=== PATIENT | male | born 1985 | race Caucasian/White ===

== ENCOUNTER 2020-06-23 20:55 | Emergency (ER) | payer MEDICAID, SELFPAY ==
[2020-06-23 21:12] VITALS: PULSE 77; RESP 18; TEMP 36.7; O2SAT 98; BMI 23.5
--- NOTE | 2020-06-23 21:31 | HMH.EDUTC ---
[facility] [place]ression: Scabies Disposition: Home, Self-Care Condition on Discharge: Good Instructions: Scabies, DI for Scabies, Permethrin Topical Additional Instructions: Permethrin 5% cream for all family members[1] Apply from neck down Leave on for 8-12hr before washing off Repeat in 14 days if no improvement You may continue to have itching for the next few days after using cream Follow up with Family doctor if no improvement or any worsening of symptoms Return if needed Straight to ER if any life threatening symptoms Prescriptions: Mupirocin [Bactroban 2% Ointment 22gm tube] 1 applicatio TP TID #1 tube Transmission Status: Received by [facility] Permethrin [Elimite 5% cream 60gm tube] 1 applicatio TP DIRECTED #1 tube Transmission Status: Received by [facility] Referrals: PCP,No [Primary Care Provider] - As needed Time of Disposition: 21:33 Medical Decision Making - Jesus Inquiry Pt receiving controlled substance: No Jesus was queried for this patient: No Vital Signs: 06/23/20 21:12 06/23/20 21:35 Temperature 98.1 F 98.1 F Temperature Source Oral Pulse Rate 77 Pulse Rate [Left] 77 Respiratory Rate 18 18 Blood Pressure 00/00 L 02 Sat by Pulse Oximetry 98 Oxygen Delivery Method Room Air [facility] [place] - General Stated complaint: Bug bites Time Seen by Provider: 06/23/20 21:15 Mode of Arrival: Ambulatory Source of Information: Patient Limitations: No Limitations Description of Symptoms (Recalled from Triage Doc. by RN): PATIENT C/O POSSIBLE SCABIES HEENT Symptoms (Recalled from RN notes): No Resp Symptoms (Recalled from RN notes): No Skin Symptoms (Recalled from RN notes): Yes MS Symptoms (Recalled from RN notes): No Functional Status (Recalled from RN notes): WNL - History of Present Illness Provider Complaint: Patient states that he thinks he has scabies States that he has been cleaning out an old abandoned house and noticed he was breaking out with rash and felt like he was being bitten by something and scratched off several of the bumps and got a small bug' out of it and when he looked it up on the computer it looked like scabies States that and daughter is having similar bites States that also he has been scratching the ones on his lower back and thinks they may be a infected - Related Data Home Medications Medication Instructions Recorded Confirmed Buprenorphine HCl/Naloxone HCl 1.5 tab PO DAILY 05/05/19 10/24/19 [Buprenorphin-Naloxon 8-2 mg Sl] Previous Rx's Medication Instructions Recorded Mupirocin [Bactroban 2% Ointment 1 applicatio TP TID #1 tube 06/23/20 22gm tube] Permethrin [Elimite 5% cream 60gm 1 applicatio TP DIRECTED #1 tube 06/23/20 tube] Allergies Allergy/AdvReac Type Severity Reaction Status Date / Time No Known Allergies Allergy Verified 05/05/19 17:28 - Worker's Comp Is this a Worker's Comp case?: No [facility] History - Hepatitis A Screen Drug use history?: No High risk sexual behaviors?: No History of sexually transmitted infection?: No Currently employed?: No Childcare worker?: No Do you have indoor plumbing?: Yes Do you have electricity?: Yes Attestation statement:: This patient has been screened for Hepatitis A risk factors. I have reviewed the patient's past medical history: Yes Medical History: Denies:: Diabetes Mellitus Type 1, Diabetes Mellitus Type 2 - Social History Smoking Status: Current every day smoker Tobacco Type: cigarettes # Packs/Day (cigarettes): 1 Alcohol Intake: never Alcohol Intake Frequency:: holidays/special occasions only Substance Use Type: denies use Occupational Status: other Housing: house Household Members: spouse ROS Obtained: Yes All systems reviewed & no additional complaints, Yes Systems reviewed as appropriate & no additional complaints - Constitutional Constitutional: Reports system reviewed and no additional complaints, except
[2020-06-23 21:35] VITALS: BP 00/00; PULSE 77; RESP 18; TEMP 36.7; O2SAT 98
== END 2020-06-23 21:39 | disposition home or self-care (01) ==
PROVIDERS: Emergency Provider Nurse Practitioner
DX: B86 Scabies (principal); F17.210 Nicotine dependence, cigarettes, uncomplicated
CPT/HCPCS: 99201

== ENCOUNTER 2021-05-12 15:40 | Emergency (ER) | payer MEDICAID, SELFPAY ==
[2021-05-12 15:40] VITALS: BP 162/91; PULSE 110; RESP 18; TEMP 36.8; O2SAT 99; BMI 28.3
--- NOTE | 2021-05-12 16:42 | HMH.EDUTC ---
[facility] [place] Disposition Clinical Impression: Generalized pruritus Bites and stings, insect Qualifiers: Encounter type: initial encounter Qualified Code(s): W57.XXXA - Bitten or stung by nonvenomous insect and other nonvenomous arthropods, initial encounter Disposition: Home, Self-Care Condition on Discharge: Good Instructions: DI for Itching Prescriptions: diphenhydrAMINE HCL [Diphenhydramine HCl] 25 mg PO Q6HP PRN #30 cap PRN Reason: Itching Transmission Status: Received by [facility] methylPREDNISolone [Medrol] 4 mg PO DIRECTED 6 Days #21 tab.ds.pk Transmission Status: Received by [facility] Triamcinolone Acetonide 1 applicatio TP TIDP PRN 7 Days #1 tube PRN Reason: Itching Transmission Status: Received by [facility] Referrals: ProviderJuaquin MD [Primary Care Provider] - Marilu Montaño MD [Referring] - Forms: Work/School Release Time of Disposition: 17:04 Medical Decision Making - Medical Records Medical records reviewed: No: I reviewed the patient's medical records. - Jesus Inquiry Pt receiving controlled substance: No Vital Signs: 05/12/21 15:40 05/12/21 16:49 Temperature 98.3 F 98.3 F Temperature Source Oral Pulse Rate 110 H Pulse Rate [Left Brachial] 110 H Respiratory Rate 18 18 Blood Pressure 162/91 H Blood Pressure [Left Arm] 162/91 H Blood Pressure Mean [Left Arm] 114 Blood Pressure Source [Left Arm] Automatic Cuff Blood Pressure Position [Left Arm] Sitting 02 Sat by Pulse Oximetry 99 Oxygen Delivery Method Room Air [facility] [place] HPI - General Stated complaint: bugs crawing all over him biting Time Seen by Provider: 05/12/21 15:50 Mode of Arrival: Ambulatory Source of Information: Patient Limitations: No Limitations Description of Symptoms (Recalled from Triage Doc. by RN): PATIENT C/O BUG BITES ALL OVER. HE STATES HE WAS SEEN FOR IT APPROX 6 MONTHS AGO AND WAS GIVEN CREAM, BUT STATES THE CREAM MULTIPLIED THE BUGS AND THEY ARE STILL CRAWLING ON HIM AND BITING HIM, GOING UNDER HIS SKIN HEENT Symptoms (Recalled from RN notes): No Resp Symptoms (Recalled from RN notes): No Skin Symptoms (Recalled from RN notes): Yes MS Symptoms (Recalled from RN notes): No Functional Status (Recalled from RN notes): WNL - History of Present Illness Provider Complaint: He states that he feels like he has bugs crawling all over him. He has been itching all over for the past 2 days. He denies seeing any bugs, but he thinks they have burrowed into his skin. He denies any fever/chills. - Related Data Previous Rx's Medication Instructions Recorded Triamcinolone Acetonide 1 applicatio TP TIDP PRN 7 Days #1 05/12/21 tube diphenhydrAMINE HCL 25 mg PO Q6HP PRN #30 cap 05/12/21 [Diphenhydramine HCl] methylPREDNISolone [Medrol] 4 mg PO DIRECTED 6 Days #21 05/12/21 tab.[email or web address] Allergies Allergy/AdvReac Type Severity Reaction Status Date / Time No Known Allergies Allergy Verified 05/05/19 17:28 - Worker's Comp Is this a Worker's Comp case?: No [facility] History - Hepatitis A Screen Drug use history?: No High risk sexual behaviors?: No History of sexually transmitted infection?: No Currently employed?: No Childcare worker?: No Do you have indoor plumbing?: Yes Do you have electricity?: Yes Attestation statement:: This patient has been screened for Hepatitis A risk factors. I have reviewed the patient's past medical history: Yes Medical History: Denies:: Diabetes Mellitus Type 1, Diabetes Mellitus Type 2 - Social History Smoking Status: Current every day smoker Tobacco Type: cigarettes # Packs/Day (cigarettes): 1 Alcohol Intake: never Alcohol Intake Frequency:: holidays/special occasions only Substance Use Type: denies use Occupational Status: other Housing: house Household Members: spouse ROS Obtained: Yes All systems reviewed & no additional complaints Physical Exam - General General appearance: alert, in no apparent distress - Head
[2021-05-12 16:49] VITALS: BP 162/91; PULSE 110; RESP 18; TEMP 36.8; O2SAT 99
== END 2021-05-12 17:05 | disposition home or self-care (01) ==
LOC: UTC 15:44
PROVIDERS: Emergency Provider Nurse Practitioner Family
DX: L29.9 Pruritus, unspecified (principal); W57.XXXA Bitten or stung by nonvenomous insect and other nonvenomous arthropods, initial encounter; F17.210 Nicotine dependence, cigarettes, uncomplicated

== ENCOUNTER → 2022-01-31 11:56 | Outpatient (CLI) | payer MEDICAID, SELFPAY ==
[2022-01-31 13:16] LABS: Basophils # 0.1 K/mm3 (0-0.2); Basophils % 0.5 % (0.1-2.0); Eosinophils # 0.4 K/mm3 (0.0-0.4); Eosinophils % 3.8 % (0.1-12.0); Hematocrit 41.8 % (42.0-52.0); Hemoglobin 13.7 g/dL (14.1-18.0); Lymphocytes % 21.8 % (10-50); Mean Corpuscular HGB Conc 32.7 g/dL (31.8-35.4); Mean Corpuscular Hemoglobin 30.4 pg (27.0-31.2); Mean Corpuscular Volume 92.8 fl (80-94); Monocytes # 0.6 K/mm3 (0.1-1.0); Monocytes % 6.6 % (1.7-9.3); Neutrophils # 6.1 K/mm3 (1.8-7.8); Neutrophils % 67.3 % (37.0-80.0); Platelet Count 369 K/mm3 (142-424); Red Cell Distribution Width 13.4 % (11.5-17.5); White Blood Count 9.1 K/mm3 (4.8-10.8)
[2022-01-31 16:27] LABS: Alanine Aminotransferase 53 U/L (12-78); Albumin Level 3.9 g/dl (3.5-5.0); Albumin/Globulin Ratio 1.3 (1.1-1.8); Alkaline Phosphatase 101 U/L (38-126); Amylase 91 U/L (30-110); Anion Gap 11.8 mEq/L (5-15); Aspartate Amino Transferase 35 U/L (17-59); Bilirubin,Total 0.4 mg/dl (0.2-1.3); Blood Urea Nitrogen 17 mg/dl (9-20); Calcium 8.4 mg/dl (8.4-10.2); Carbon Dioxide 27 mmol/L (22.0-30.0); Chloride 102 mmol/L (98-107); Estimated Glomerular Filt Rate 84 ml/min (>60); GFR (African American) 102 ML/MIN (>60); Globulin 2.9 g/dL (1.3-3.2); Glucose 107 mg/dl (74-100); Potassium 3.8 mmoL/L (3.5-5.1); Sodium 137 mmol/L (136-145); Total Protein,Serum 6.8 g/dl (6.3-8.2)
== END ==
PROVIDERS: PCP Internal Medicine; Visit Provider Internal Medicine
DX: R10.11 Right upper quadrant pain (principal); Z86.19 Personal history of other infectious and parasitic diseases
CPT/HCPCS: 36415; 80053; 82150; 85025

== ENCOUNTER 2022-11-21 22:53 | Observation (INO) | payer MEDICAID, SELFPAY ==
[2022-11-21 22:53] VITALS: BP 130/89; PULSE 130; RESP 19; TEMP 38.3; O2SAT 99; BMI 26.6
[2022-11-21 23:04] VITALS: BP 140/83; PULSE 124; RESP 19; O2SAT 99
--- NOTE | 2022-11-21 23:43 | ECG_ITS ---
APPROVED REPORT Exam: Resting ECG HR:111 bpm ECG Measurements Heart Rate 111 AXES SD 117 P 40 QRSd 86 QRS 84 QT 302 T 70 QTc 368 Conclusion SINUS TACHYCARDIA WITH SHORT SD INTERVAL ABNORMAL RHYTHM ECG UNCONFIRMED REPORT Electronically signed by : Ortiz Condon MD 11/22/2022 19:12:19
[2022-11-21 23:48] LABS: Basophils # 0.1 K/mm3 (0-0.2); Basophils % 0.5 % (0.1-2.0); Eosinophils # 0.2 K/mm3 (0.0-0.4); Eosinophils % 1.1 % (0.1-12.0); Hematocrit 45.8 % (42.0-52.0); Hemoglobin 15.7 g/dL (14.1-18.0); Lymphocytes # 1.8 K/mm3 (0.7-4.5); Lymphocytes % 11.6 % (10-50); Mean Corpuscular HGB Conc 34.3 g/dL (31.8-35.4); Mean Corpuscular Hemoglobin 30.1 pg (27.0-31.2); Mean Corpuscular Volume 87.7 fl (80-94); Mean Platelet Volume 8.1 fl (7.4-10.4); Monocytes # 0.7 K/mm3 (0.1-1.0); Monocytes % 4.3 % (1.7-9.3); Neutrophils # 12.8 K/mm3 (1.8-7.8); Neutrophils % 82.4 % (37.0-80.0); Platelet Count 368 K/mm3 (142-424); Red Blood Count 5.22 M/mm3 (4.60-6.20); Red Cell Distribution Width 12.7 % (11.5-17.5); White Blood Count 15.5 K/mm3 (4.8-10.8)
[2022-11-21 23:50] LABS: MANUAL DIFFERENTIAL MANUAL DIFFERENTIAL (MANUAL DIFF)
[2022-11-21 23:58] LABS: Lymphocytes % 13 % (10-50); Monocytes % 3 % (2-9); Neutrophils % 84 % (42-76); Stomatocytes 1+; Total Cells Counted 100
[2022-11-21 23:59] LABS: Platelet Estimate Normal; Tear Drop Cells 1+
[2022-11-22] VITALS (14 sets, daily range): BP systolic 108–148; BP diastolic 65–102; PULSE 64–104; RESP 14–20; TEMP 36.4–36.8; O2SAT 93–100; BMI 25.9
[2022-11-22 00:11] LABS: Erythrocyte Sedimentation Rate 23 mm/hr (0-15)
--- NOTE | 2022-11-22 00:31 | CT_ITS ---
PROCEDURE INFORMATION: Exam: CT Right Upper Extremity With Contrast, Forearm Exam date and time: 11/22/2022 1:02 AM Age: 36 years old Clinical indication: Mass or lump; Arm, lower; Patient HX: PT states abscess right forearm x1 week; Additional info: Large abscess, swelling at elbow, R/O deep infect TECHNIQUE: Imaging protocol: Computed tomography of the Right upper extremity with contrast. Exam focused on the forearm. Radiation optimization: All CT scans at this facility use at least one of these dose optimization techniques: automated exposure control; mA and/or kV adjustment per patient size (includes targeted exams where dose is matched to clinical indication); or iterative reconstruction. Contrast material: ISOVUE; Contrast volume: 75 ml; Contrast route: IV; COMPARISON: No relevant prior studies available. FINDINGS: Bones/joints: No acute fracture. No dislocation. No definite cortical destruction. Soft tissues: Mild skin thickening. Moderate stranding/fluid within subcutaneous tissues. 3.2 x 2.7 x 1.5 cm peripherally enhancing fluid collection along dorsal aspect of forearm. No soft tissue gas. IMPRESSION: Findings compatible with cellulitis and abscess.
[2022-11-22 01:16] LABS: Chloride 103 mmol/L (98-107); Potassium 4.1 mmoL/L (3.5-5.1); Sodium 138 mmol/L (136-145)
[2022-11-22 01:18] LABS: Alanine Aminotransferase 96 U/L (12-78); Aspartate Amino Transferase 56 U/L (17-59); Blood Urea Nitrogen 10 mg/dl (9-20); Creatinine Clearance Estimated 123 mL/min (50-200); Estimated Glomerular Filt Rate 95 ml/min (>60); GFR (African American) 115 ML/MIN (>60)
[2022-11-22 01:19] LABS: Albumin Level 3.8 g/dl (3.5-5.0); Albumin/Globulin Ratio 1.1 (1.1-1.8); Alkaline Phosphatase 130 U/L (38-126); Anion Gap 8.1 mEq/L (5-15); Bilirubin,Total 0.3 mg/dl (0.2-1.3); Calcium 8.6 mg/dl (8.4-10.2); Carbon Dioxide 31 mmol/L (22.0-30.0); Globulin 3.6 g/dL (1.3-3.2); Glucose 112 mg/dl (74-100); Total Protein,Serum 7.4 g/dl (6.3-8.2)
[2022-11-22 01:25] LABS: C-Reactive Protein 40.5 mg/L (0-4)
[2022-11-22 01:52] LABS: Procalcitonin 0.092 ng/mL (0.0-2.0)
[2022-11-22 02:00] LABS: Coronavirus 19, PCR Not Detected (NotDetected); Influenza A, PCR Not Detected (NotDetected); Influenza B, PCR Not Detected (NotDetected)
--- NOTE | 2022-11-22 02:52 | HMH.EDGENADL ---
Discharge Plan Disposition Chief Complaint: Skin/Abscess/Foreign Body Discharge ED Provider: Natacha Castro General Adult HPI General Chief complaint: Skin/Abscess/Foreign Body Stated complaint: Arm pain Time Seen by Provider: 11/21/22 23:14 Mode of Arrival: Ambulatory Source of Information: Patient Limitations: No Limitations Description of Symptoms (Recalled from ER Triage Doc. by RN): Patient reports RFA abscess x1.5 weeks. Reports history of an abscess previously with sepsis. Patient reports fever, chills, headache, nausea. History of Present Illness HPI narrative: 36-year-old male with PMH of IVDA and seizures who presents with one week of progressively worsening left forearm swelling and new development of fevers and chills earlier today. No chest pain, shortness of breath, nausea, vomiting, abdominal pain. Does not recall his last drug use. He does note that he has a history of sepsis in the past secondary to similar infection. Also notes that he has had several abscesses in the past that have self drained. Related Data Home Medications Medication Instructions Recorded Confirmed No Known Home Medications 11/21/22 11/21/22 Allergies Allergy/AdvReac Type Severity Reaction Status Date / Time No Known Allergies Allergy Verified 05/05/19 17:28 [facility] Disclaimer: The information contained in this section may have been updated after the patient was seen, as this information can be updated by other users. Social History Smoking Status: Current every day smoker tobacco type: cigarettes packs per day: 1 alcohol intake: never substance use type: denies use current occupational status: other Travel in the last 8 weeks: None household members: spouse housing: house caffeine: No ROS Obtained: Yes All systems reviewed & no additional complaints except as documented Physical Exam General General appearance: alert Head Head exam: atraumatic and normocephalic Eye Eye exam: Present normal appearance ENT ENT exam: Present normal exam Neck Neck exam: Present normal inspection and full ROM Chest Chest inspection: Present normal inspection and symmetric chest wall rise Respiratory Respiratory exam: Present normal lung sounds bilaterally; Absent respiratory distress Cardiovascular Cardiovascular exam: Present tachycardia and normal heart sounds Abdominal Exam Abdominal exam: Present soft; Absent tenderness Expanded Upper Extremity Exam Right: Comment: Large abscess with central ulceration to lateral forearm distal to the elbow, at least 4 x 3 cm abscess with several surrounding cm of induration, able to flex and extend at the elbow, sensation intact Neurological Exam Neurological exam: Present alert and oriented X3 Skin Skin exam: Present warm and dry Medical Decision Making Jesus Inquiry Pt receiving controlled substance: No Vital Signs: 11/21/22 22:53 11/21/22 23:04 Temperature 100.9 F H Temperature Source Oral Pulse Rate 124 H Pulse Rate [Right] 130 H Respiratory Rate 19 19 Blood Pressure 140/83 Blood Pressure [Left Arm] 130/89 Blood Pressure Mean [Left Arm] 102 02 Sat by Pulse Oximetry 99 99 Oxygen Delivery Method Room Air Room Air Lab Data Lab Results 11/21/22 23:20: WBC 15.5 H, RBC 5.22, Hgb 15.7, Hct 45.8, MCV 87.7, MCH 30.1, MCHC 34.3, RDW 12.7, Plt Count 368, MPV 8.1, Neut % (Auto) 82.4 H, Lymph % (Auto) 11.6, [place] % (Auto) 4.3, Eos % (Auto) 1.1, Baso % (Auto) 0.5, Neut # (Auto) 12.8 H, Lymph # (Auto) 1.8, [place] # (Auto) 0.7, Eos # (Auto) 0.2, Baso # (Auto) 0.1, Total Counted 100, Neutrophils % (Manual) 84 H, Lymphocytes % (Manual) 13, Monocytes % (Manual) 3, Platelet Estimate Normal, Tear Drop Cells 1+, Stomatocytes 1+ 11/21/22 23:20: Lactate 2.0 11/21/22 23:20: ESR 23 H 11/22/22 00:56: Sodium 138, Potassium 4.1, Chloride 103, Carbon Dioxide 31 H, Anion Gap 8.1, BUN 10, Creatinine 0.90, Estimated Creat Clear 123, Estimated GFR 95, Est GFR (
--- NOTE | 2022-11-22 03:00 | EXP.HP ---
History of Present Illness *Admission Date: 11/22/22 *Reason for visit:: abscess right arm *History of present illness: for one and half weeks had three places that were infected two broke opened and healed the right arm keep getting worse. he had similar over one and half years ago. he [facility] in [facility] [facility] Disclaimer: The information contained in this section may have been updated after the patient was seen, as this information can be updated by other users. Social History Smoking Status: Current every day smoker tobacco type: cigarettes packs per day: 1 alcohol intake: never substance use type: denies use current occupational status: other Travel in the last 8 weeks: None household members: spouse housing: house caffeine: No Review of Systems Review of Systems Review of systems:: pertinent systems reviewed and negative unless documented below Review of systems (narrative): noted history of seizures , was on keppra, due to insurance stopped the medication over 3 months ago , Constitutional Constitutional: Reports system reviewed and no additional complaints, except as documented and Reports body ache(s) Eyes Eyes: Reports system reviewed and no additional complaints, except as documented ENT Ears, Nose, Mouth, and Throat: Reports system reviewed and no additional complaints, except as documented *Cardiovascular Cardiovascular: Reports system reviewed and no additional complaints, except as documented *Respiratory Respiratory: Reports system reviewed and no additional complaints, except as documented *Gastrointestinal Gastrointestinal: Reports system reviewed and no additional complaints, except as documented *Genitourinary Genitourinary: Reports system reviewed and no additional complaints, except as documented *Musculoskeletal Musculoskeletal: Reports system reviewed and no additional complaints, except as documented Integumentary/Breasts Skin/Breast: Reports system reviewed and no additional complaints, except as documented, Reports furuncle (reason for visit ) and Reports non-healing lesions *Neurologic Neurologic: Reports system reviewed and no additional complaints, except as documented Psychiatric Psychiatric: Reports system reviewed and no additional complaints, except as documented Endocrine Endocrine: Reports system reviewed and no additional complaints, except as documented Hematologic/Lymphatic Hematologic/Lymphatic: Reports system reviewed and no additional complaints, except as documented Allergic/Immunologic Allergic/Immunologic: Reports system reviewed and no additional complaints, except as documented Meds Home Medications and Allergies Home Medications Medication Instructions Recorded Confirmed Type No Known Home Medications 11/21/22 11/21/22 History New Prescriptions to Start Prescriptions: Allergies Allergy/AdvReac Type Severity Reaction Status Date / Time No Known Allergies Allergy Verified 05/05/19 17:28 Exam Data for Last 24 hours Vital signs and Labs for Last 24 Hours: Temp Pulse Resp BP Pulse Ox 100.9 F H 124 H 19 140/83 99 11/21/22 22:53 11/21/22 23:04 11/21/22 23:04 11/21/22 23:04 11/21/22 23:04 Laboratory Results - last 24 hr 11/21/22 23:20: WBC 15.5 H, RBC 5.22, Hgb 15.7, Hct 45.8, MCV 87.7, MCH 30.1, MCHC 34.3, RDW 12.7, Plt Count 368, MPV 8.1, Neut % (Auto) 82.4 H, Lymph % (Auto) 11.6, [place] % (Auto) 4.3, Eos % (Auto) 1.1, Baso % (Auto) 0.5, Neut # (Auto) 12.8 H, Lymph # (Auto) 1.8, [place] # (Auto) 0.7, Eos # (Auto) 0.2, Baso # (Auto) 0.1, Total Counted 100, Neutrophils % (Manual) 84 H, Lymphocytes % (Manual) 13, Monocytes % (Manual) 3, Platelet Estimate Normal, Tear Drop Cells 1+, Stomatocytes 1+ 11/21/22 23:20: Lactate 2.0 11/21/22 23:20: ESR 23 H 11/22/22 00:56: Sodium 138, Potassium 4.1, Chloride 103, Carbon Dioxide 31 H, Anion Gap 8.1, BUN 10, Creatinine 0.90, Estimated Creat Clear 123, Estimated GFR 95, Est GFR (Afr
--- NOTE | 2022-11-22 03:48 | PC.NURSE ---
PT ARRIVED TO FLOOR AT THIS TIME
--- NOTE | 2022-11-22 04:55 | EXP.PN ---
Subjective *Date: 11/22/22 *Time: 04:55 Interval history: itching and cough Exam Data for Last 24 hours Vital signs and Labs for Last 24 Hours: Temp Pulse Resp BP Pulse Ox 98.1 F 102 H 16 134/68 100 11/22/22 04:22 11/22/22 04:29 11/22/22 04:22 11/22/22 04:22 11/22/22 04:29 Laboratory Results - last 24 hr 11/21/22 23:20: WBC 15.5 H, RBC 5.22, Hgb 15.7, Hct 45.8, MCV 87.7, MCH 30.1, MCHC 34.3, RDW 12.7, Plt Count 368, MPV 8.1, Neut % (Auto) 82.4 H, Lymph % (Auto) 11.6, [place] % (Auto) 4.3, Eos % (Auto) 1.1, Baso % (Auto) 0.5, Neut # (Auto) 12.8 H, Lymph # (Auto) 1.8, [place] # (Auto) 0.7, Eos # (Auto) 0.2, Baso # (Auto) 0.1, Total Counted 100, Neutrophils % (Manual) 84 H, Lymphocytes % (Manual) 13, Monocytes % (Manual) 3, Platelet Estimate Normal, Tear Drop Cells 1+, Stomatocytes 1+ 11/21/22 23:20: Lactate 2.0 11/21/22 23:20: ESR 23 H 11/22/22 00:56: Sodium 138, Potassium 4.1, Chloride 103, Carbon Dioxide 31 H, Anion Gap 8.1, BUN 10, Creatinine 0.90, Estimated Creat Clear 123, Estimated GFR 95, Est GFR ( Amer) 115, Glucose 112 H, Calcium 8.6, Total Bilirubin 0.3, AST 56, ALT 96 H, Alkaline Phosphatase 130 H, C-Reactive Protein 40.5 H, Total Protein 7.4, Albumin 3.8, Globulin 3.6 H, Albumin/Globulin Ratio 1.1, Procalcitonin 0.092 11/22/22 01:54: SARS-CoV-2 (PCR) Not detected, Influenza A Untype (PCR) Not detected, Influenza Type B (PCR) Not detected I & O for Last 24 hours: Intake & Output 11/19/22 11/20/22 11/21/22 11/22/22 23:59 23:59 23:59 23:59 Weight 77.111 kg 74.843 kg Microbiology Reports for the Last 24 Hours: Microbiology 11/21/22 23:07 Arm,Right - Abscess Gram Stain - Final *Routine HEENT Exam ENT: Present mucous membranes moist Comments: posterior phyarnx normal exam *Routine Respiratory Exam Respiratory: Present CTA bilaterally and normal respiratory effort Comments: lung clear in all [place] Assessment and Plan *Assessment and plan (1) Cough: Status: Acute Category: Medical Code(s): R05.9 - Cough, unspecified (2) Itching: Status: Acute Category: Medical Code(s): L29.9 - Pruritus, unspecified Plan patient has started to cough, was not in ER , also feels itchy. will add Benadryl and cough syrup .
--- NOTE | 2022-11-22 07:43 | EXP.PN ---
Subjective *Date: 11/22/22 *Time: 12:37 Interval history: Date of service 11/22/2022 I am accompanied by several members of the multidisciplinary rounds team. The nursing staff report T-max 100.9 with elevated heart rates and stable blood pressures. He saturating appropriately on room air. His morning labs identified leukocytoses with mildly elevated ESR and CRP. His procalcitonin is negative and imaging of his forearm identifies soft tissue changes. His ED lactic acid was normal. He is tolerating his IV antibiotic therapy with no adverse events. Orthopedics consult noted. The patient reports adequate pain control and voices no acute events since admission. Exam Data for Last 24 hours Vital signs and Labs for Last 24 Hours: Temp Pulse Resp BP Pulse Ox 98.1 F 102 H 16 134/68 100 11/22/22 04:22 11/22/22 04:29 11/22/22 04:22 11/22/22 04:22 11/22/22 04:29 Laboratory Results - last 24 hr 11/21/22 23:20: WBC 15.5 H, RBC 5.22, Hgb 15.7, Hct 45.8, MCV 87.7, MCH 30.1, MCHC 34.3, RDW 12.7, Plt Count 368, MPV 8.1, Neut % (Auto) 82.4 H, Lymph % (Auto) 11.6, [place] % (Auto) 4.3, Eos % (Auto) 1.1, Baso % (Auto) 0.5, Neut # (Auto) 12.8 H, Lymph # (Auto) 1.8, [place] # (Auto) 0.7, Eos # (Auto) 0.2, Baso # (Auto) 0.1, Total Counted 100, Neutrophils % (Manual) 84 H, Lymphocytes % (Manual) 13, Monocytes % (Manual) 3, Platelet Estimate Normal, Tear Drop Cells 1+, Stomatocytes 1+ 11/21/22 23:20: Lactate 2.0 11/21/22 23:20: ESR 23 H 11/22/22 00:56: Sodium 138, Potassium 4.1, Chloride 103, Carbon Dioxide 31 H, Anion Gap 8.1, BUN 10, Creatinine 0.90, Estimated Creat Clear 123, Estimated GFR 95, Est GFR ( Amer) 115, Glucose 112 H, Calcium 8.6, Total Bilirubin 0.3, AST 56, ALT 96 H, Alkaline Phosphatase 130 H, C-Reactive Protein 40.5 H, Total Protein 7.4, Albumin 3.8, Globulin 3.6 H, Albumin/Globulin Ratio 1.1, Procalcitonin 0.092 11/22/22 01:54: SARS-CoV-2 (PCR) Not detected, Influenza A Untype (PCR) Not detected, Influenza Type B (PCR) Not detected I & O for Last 24 hours: Intake & Output 11/19/22 11/20/22 11/21/22 11/22/22 23:59 23:59 23:59 23:59 Weight 77.111 kg 74.843 kg Microbiology Reports for the Last 24 Hours: Microbiology 11/22/22 01:39 Arm,Right Gram Stain - Final 11/21/22 23:07 Arm,Right - Abscess Gram Stain - Final Constitutional Constitutional: no acute distress *Routine HEENT Exam Head: Present normocephalic Eye: Present EOMI and PERRL ENT: Present mucous membranes moist *Routine Neck Exam Neck: Present supple; Absent lymphadenopathy *Routine Respiratory Exam Respiratory: Present CTA bilaterally *Routine Cardiovascular Exam Cardiovascular: Present RRR *Routine Abdominal Exam Abdominal: Present soft and normoactive bowel sounds; Absent tenderness *Routine Extremities Exam Comments: Right forearm with edema, erythema and surgical dressing. He demonstrates full range of motion at the elbow and shoulder with intact pulses and sensitivity. He demonstrates a normal capillary refill. His forearm is tender to palpation. *Routine Skin Exam Skin: Present warm; Absent rash *Routine Neurological Exam Neurological: Present alert and oriented X3 Assessment and Plan *Assessment and plan (1) Cellulitis of right upper extremity: Status: Acute Category: Medical Code(s): L03.113 - Cellulitis of right upper limb (2) Abscess of right forearm: Status: Acute Category: Medical Code(s): L02.413 - Cutaneous abscess of right upper limb (3) Intravenous drug abuse: Status: Acute Category: Social Hx Code(s): F19.10 - Other psychoactive substance abuse, uncomplicated Plan This is a 36-year-old male with right forearm cellulitis and abscess identified on CT imaging with elevated inflammatory markers and history of intravenous drug use. He denies a past history of endocarditis and reports no IV drug use in over a year. He has undergone I&D in the ED and o
[2022-11-22 07:47] LABS: Basophils # 0.1 K/mm3 (0-0.2); Basophils % 0.4 % (0.1-2.0); Eosinophils # 0.3 K/mm3 (0.0-0.4); Eosinophils % 2.7 % (0.1-12.0); Hematocrit 37.8 % (42.0-52.0); Lymphocytes # 2.1 K/mm3 (0.7-4.5); Lymphocytes % 16.3 % (10-50); Mean Corpuscular HGB Conc 33.3 g/dL (31.8-35.4); Mean Corpuscular Hemoglobin 28.9 pg (27.0-31.2); Mean Corpuscular Volume 86.7 fl (80-94); Mean Platelet Volume 7.9 fl (7.4-10.4); Monocytes # 0.8 K/mm3 (0.1-1.0); Monocytes % 5.9 % (1.7-9.3); Neutrophils # 9.4 K/mm3 (1.8-7.8); Neutrophils % 74.7 % (37.0-80.0); Platelet Count 316 K/mm3 (142-424); Red Blood Count 4.36 M/mm3 (4.60-6.20); Red Cell Distribution Width 12.7 % (11.5-17.5); White Blood Count 12.6 K/mm3 (4.8-10.8)
[2022-11-22 07:53] LABS: Alanine Aminotransferase 70 U/L (12-78); Albumin Level 3.2 g/dl (3.5-5.0); Albumin/Globulin Ratio 1.1 (1.1-1.8); Alkaline Phosphatase 103 U/L (38-126); Anion Gap 7.8 mEq/L (5-15); Aspartate Amino Transferase 39 U/L (17-59); Bilirubin,Total 0.2 mg/dl (0.2-1.3); Blood Urea Nitrogen 7 mg/dl (9-20); Carbon Dioxide 27 mmol/L (22.0-30.0); Chloride 110 mmol/L (98-107); Creatinine Clearance Estimated 134 mL/min (50-200); Estimated Glomerular Filt Rate 109 ml/min (>60); GFR (African American) 132 ML/MIN (>60); Glucose 108 mg/dl (74-100); Potassium 3.8 mmoL/L (3.5-5.1); Sodium 141 mmol/L (136-145); Total Protein,Serum 6.2 g/dl (6.3-8.2)
[2022-11-22 07:54] LABS: Hemoglobin 12.7 g/dL (14.1-18.0)
--- NOTE | 2022-11-22 08:22 | EXP.PHA.CONS ---
Pharmacy Consult Date: 11/22/22 Time: 08:23 Referring provider: DR. PARK Reason for Consult:: VANCOMYCIN DOSING Allergies Allergy/AdvReac Type Severity Reaction Status Date / Time No Known Allergies Allergy Verified 05/05/19 17:28 Home Medications Medication Instructions Recorded Confirmed Type No Known Home Medications 11/21/22 11/21/22 History New Prescriptions to Start Prescriptions: Height: 1.7 m Weight: 74.843 kg Laboratory Results:: Laboratory Results - last 24 hr 11/21/22 23:20: WBC 15.5 H, RBC 5.22, Hgb 15.7, Hct 45.8, MCV 87.7, MCH 30.1, MCHC 34.3, RDW 12.7, Plt Count 368, MPV 8.1, Neut % (Auto) 82.4 H, Lymph % (Auto) 11.6, [place] % (Auto) 4.3, Eos % (Auto) 1.1, Baso % (Auto) 0.5, Neut # (Auto) 12.8 H, Lymph # (Auto) 1.8, [place] # (Auto) 0.7, Eos # (Auto) 0.2, Baso # (Auto) 0.1, Total Counted 100, Neutrophils % (Manual) 84 H, Lymphocytes % (Manual) 13, Monocytes % (Manual) 3, Platelet Estimate Normal, Tear Drop Cells 1+, Stomatocytes 1+ 11/21/22 23:20: Lactate 2.0 11/21/22 23:20: ESR 23 H 11/22/22 00:56: Sodium 138, Potassium 4.1, Chloride 103, Carbon Dioxide 31 H, Anion Gap 8.1, BUN 10, Creatinine 0.90, Estimated Creat Clear 123, Estimated GFR 95, Est GFR ( Amer) 115, Glucose 112 H, Calcium 8.6, Total Bilirubin 0.3, AST 56, ALT 96 H, Alkaline Phosphatase 130 H, C-Reactive Protein 40.5 H, Total Protein 7.4, Albumin 3.8, Globulin 3.6 H, Albumin/Globulin Ratio 1.1, Procalcitonin 0.092 11/22/22 01:54: SARS-CoV-2 (PCR) Not detected, Influenza A Untype (PCR) Not detected, Influenza Type B (PCR) Not detected 11/22/22 07:30: WBC 12.6 H, RBC 4.36 L, Hgb 12.7 L D, Hct 37.8 L, MCV 86.7, MCH 28.9, MCHC 33.3, RDW 12.7, Plt Count 316, MPV 7.9, Neut % (Auto) 74.7, Lymph % (Auto) 16.3, [place] % (Auto) 5.9, Eos % (Auto) 2.7, Baso % (Auto) 0.4, Neut # (Auto) 9.4 H, Lymph # (Auto) 2.1, [place] # (Auto) 0.8, Eos # (Auto) 0.3, Baso # (Auto) 0.1 11/22/22 07:30: Sodium 141, Potassium 3.8, Chloride 110 H, Carbon Dioxide 27, Anion Gap 7.8, BUN 7 L D, Creatinine 0.80, Estimated Creat Clear 134, Estimated GFR 109, Est GFR ( Amer) 132, Glucose 108 H, Calcium 8.0 L, Total Bilirubin 0.2, AST 39 D, ALT 70 D, Alkaline Phosphatase 103, Total Protein 6.2 L, Albumin 3.2 L D, Globulin 3.0, Albumin/Globulin Ratio 1.1 Medical History: Medical History (Updated 11/22/22 @ 07:50 by Wicho Alba MD) Cellulitis of arm, left Itching Assessment and Plan Assessment and plan all Dx Assessment and Plan for all problems:: Pharmacokinetic dosing service Age: 36 yo Serum creatinine: 0.8 mg/dL Height: 66.9 Inches Weight (kg): 75 Assessment: IBW (kg): 65.87 Dosing wt(kg): 75 Estimated Creatinine clearance (ml/min): 117.8 CRCL method: Cockcroft and Gault using ibw(default). Drug selected: Vancomycin Loading dose (mg): 0 Vd (liters): 63.8 (factor used: 0.85 L/kg) Lico (hr-1): 0.102 Half life (hrs): 6.80 Recommended dose: 1250 mg Interval: 8 hrs Infusion time (hrs): 2.0 Predicted peak (mcg/mL): 31.8 Predicted trough (mcg/mL): 17.24 Total body weight is being used for vancomycin dosing. Recommendations: Give Vancomycin 1250 mg q 8 hrs with an expected Cpeak of 31.8 mcg/ml and an expected Ctrough of 17.24 mcg/ml. ----Vanco only - ignore for aminoglycosides----- CLvanco= 6.51 L/hr AUC 0-24 /BONI Data: BONI 0.5 mcg/mL: AUC/BONI: 1152.1 BONI 1.0 mcg/mL: AUC/BONI: 576.0 --------- BONI 1.5 mcg/mL: AUC/BONI: 384.0 BONI 2.0 mcg/mL: AUC/BONI: 288.0
--- NOTE | 2022-11-22 08:25 | PC.NURSE ---
Notified Norberto in surgery suite of ortho consult on patient.
--- NOTE | 2022-11-22 10:35 | EXP.ORTH.CON ---
Documented by User: KENDRA Hernandez 11/22/22 11:31 History of Present Illness *Admission Date: 11/22/22 *Reason for visit:: Right forearm abscess, cellulitis *History of present illness: Patient is a 36-year-old [id number] male admitted to the acute inpatient service after presenting to the [facility] emergency department with concerns for right forearm abscess/infection. Patient states that he has had increasing swelling and pain in his right forearm for approximately 1.5 weeks with associated fevers and chills. His past medical history is significant for seizures and IV drug abuse. He does not recall his last use of illicit substances. He reports that he has had a history of similar infections and sepsis in the past with several abscesses that have spontaneously drained. This morning the patient is lying comfortably in bed. He reports some pain in his right forearm but states that it is improved following bedside incision and drainage performed in the emergency department yesterday. He denies any current feelings of fevers or chills. He denies any other symptoms or concerns at this time. [facility] Disclaimer: The information contained in this section may have been updated after the patient was seen, as this information can be updated by other users. Medical History (Updated 11/22/22 @ 12:41 by Wicho Alba MD) Cellulitis of arm, left Itching Social History (Updated 11/22/22 @ 03:48 by Edilma Govea RN) Smoking Status: Current every day smoker tobacco type: cigarettes packs per day: 1 years smoked: 17 quit status: not considering quitting alcohol intake: current substance use type: denies use current occupational status: unemployed Travel in the last 8 weeks: None household members: significant other housing: house lives independently: No marital status: single caffeine: No Review of Systems *Neurologic Neurologic: Reports system reviewed and no additional complaints, except as documented Meds Home Medications and Allergies Home Medications Medication Instructions Recorded Confirmed Type No Known Home Medications 11/21/22 11/21/22 History New Prescriptions to Start Prescriptions: Allergies Allergy/AdvReac Type Severity Reaction Status Date / Time No Known Allergies Allergy Verified 05/05/19 17:28 Ortho Exam (Inpt) Vital signs and Labs for Last 24 Hours: Temp Pulse Resp BP Pulse Ox 98.2 F 64 16 131/75 98 11/22/22 08:00 11/22/22 08:00 11/22/22 08:00 11/22/22 08:00 11/22/22 08:00 Laboratory Results - last 24 hr 11/21/22 23:20: WBC 15.5 H, RBC 5.22, Hgb 15.7, Hct 45.8, MCV 87.7, MCH 30.1, MCHC 34.3, RDW 12.7, Plt Count 368, MPV 8.1, Neut % (Auto) 82.4 H, Lymph % (Auto) 11.6, [place] % (Auto) 4.3, Eos % (Auto) 1.1, Baso % (Auto) 0.5, Neut # (Auto) 12.8 H, Lymph # (Auto) 1.8, [place] # (Auto) 0.7, Eos # (Auto) 0.2, Baso # (Auto) 0.1, Total Counted 100, Neutrophils % (Manual) 84 H, Lymphocytes % (Manual) 13, Monocytes % (Manual) 3, Platelet Estimate Normal, Tear Drop Cells 1+, Stomatocytes 1+ 11/21/22 23:20: Lactate 2.0 11/21/22 23:20: ESR 23 H 11/22/22 00:56: Sodium 138, Potassium 4.1, Chloride 103, Carbon Dioxide 31 H, Anion Gap 8.1, BUN 10, Creatinine 0.90, Estimated Creat Clear 123, Estimated GFR 95, Est GFR ( Amer) 115, Glucose 112 H, Calcium 8.6, Total Bilirubin 0.3, AST 56, ALT 96 H, Alkaline Phosphatase 130 H, C-Reactive Protein 40.5 H, Total Protein 7.4, Albumin 3.8, Globulin 3.6 H, Albumin/Globulin Ratio 1.1, Procalcitonin 0.092 11/22/22 01:54: SARS-CoV-2 (PCR) Not detected, Influenza A Untype (PCR) Not detected, Influenza Type B (PCR) Not detected 11/22/22 07:30: WBC 12.6 H, RBC 4.36 L, Hgb 12.7 L D, Hct 37.8 L, MCV 86.7, MCH 28.9, MCHC 33.3, RDW 12.7, Plt Count 316, MPV 7.9, Neut % (Auto) 74.7, Lymph % (Auto) 16.3, [place] % (Auto) 5.9, Eos % (Auto) 2.7, Baso % (Auto) 0.4, Neut # (Auto) 9.4 H, Lymph # (Auto) 2.1, Mon
--- NOTE | 2022-11-22 11:27 | MR_ITS ---
PROCEDURE INFORMATION: Exam: MR Right Upper Extremity Other Than Joint Without and With Contrast, Forearm. Exam date and time: 11/22/2022 3:57 PM Age: 36 years old Clinical indication: Swelling; Arm, lower; Right; Additional info: Right arm swelling, erythema TECHNIQUE: Imaging protocol: Magnetic resonance imaging of the Right upper extremity other than joint without and with contrast. Exam focused on the forearm. Contrast material: ISOVUE; Contrast volume: 14 ml; Contrast route: IV; COMPARISON: CT FOREARM RT W CON 11/22/2022 1:02 AM FINDINGS: Bones/joints: Osseous structures are unremarkable. No evidence of osteomyelitis. Soft tissues: There is soft tissue swelling and enhancement within the subcutaneous fat planes along the dorsal-radial aspect of the proximal forearm extending from above the elbow joint to the mid for consistent with cellulitis. There is a small crescent shaped nonenhancing fluid collection within these soft tissue changese mid forearm measuring 2 x 1 cm consistent with a small superficial abscess. It appears smaller in size on earlier CT exam. Underlying muscle bundles and deep fascial planes are unremarkable. There is some nonenhancing fluid like signal changes present along the volar aspect of the proximal for representing nonspecific soft tissue edema etiology of which is unclear but may be reactive in nature. IMPRESSION: 1. Findings consistent with cellulitis and small superficial abscess along the dorsal aspect of the proximal forearm. 2. Mild nonspecific soft tissue edema located along the volar aspect of the proximal forearm.
[2022-11-22 15:16] LABS: Microscopic, Urine URINE MICROSCOPIC (MICROSCOPIC)
[2022-11-22 15:25] LABS: Appearance,Urine CLEAR (Clear); Bilirubin,Urine Negative (Negative); Blood, Urine Negative (Negative); Color,Urine YELLOW (Yellow); Glucose,Urine (UA) Negative (Negative); Ketones,Urine Negative (Negative); Leukocyte Esterase,Urine Negative (Negative); Nitrate,Urine Negative (Negative); Protein,Urine Negative (Negative); Specific Gravity, Urine 1.015 (1.005-1.030); Urobilinogen,Urine 0.2 EU/dl (0.2)
[2022-11-22 15:33] LABS: Barbiturates Screen,Urine Negative ng/ml (<200)
[2022-11-22 15:34] LABS: Benzodiazepines Screen,Urine Negative ng/ml (<200)
[2022-11-22 15:35] LABS: Cannabinoid Screen,Urine Negative ng/ml (<50)
[2022-11-22 15:36] LABS: Cocaine Screen,Urine Negative ng/ml (<300); Methadone Screen,Urine Negative ng/ml (<300)
[2022-11-22 15:37] LABS: Opiate Screen,Urine Negative ng/ml (<300)
[2022-11-22 15:38] LABS: Phencyclidine Screen,Urine Negative ng/ml (<25)
[2022-11-22 15:44] LABS: Squamous Epithelial Cell,Urine Occasional #/hpf (0-5)
--- NOTE | 2022-11-22 15:58 | PC.NURSE ---
Pt made NPO per Dr. Matthews due to potential I&D and washout this evening. Pt. Right forearm redressed. Abscess is draining bloody, purulent drainage noted. Redressed with kerlix, 4x4s, and coban.
--- NOTE | 2022-11-22 22:13 | EXP.ANES.CKL ---
[facility] Disclaimer: The information contained in this section may have been updated after the patient was seen, as this information can be updated by other users. Medical History (Updated 11/22/22 @ 12:41 by Wicho Alba MD) Cellulitis of arm, left Itching Social History (Updated 11/22/22 @ 03:48 by Edilma Govea RN) Smoking Status: Current every day smoker tobacco type: cigarettes packs per day: 1 years smoked: 17 quit status: not considering quitting alcohol intake: current substance use type: denies use current occupational status: unemployed Travel in the last 8 weeks: None household members: significant other housing: house lives independently: No marital status: single caffeine: No [facility] Anesthesia Checklist Patient Identification Patient Identification: Arm Band Structural Data Admitted From: Home Planned Operative Procedure/s: I&D Right Forearm Abscess Consent for Planned Operative Procedure(s) Verified: Yes Verified Documents: Surgical Consent and History and Physical NPO Status Verified Time NPO: 13:00 Additional verifications Anesthesia Reactions: No Airway Assessment C-Spine Mobility Assessed: Yes TMJ Mobility Assessed: Yes Dentition: Edentulous Neurological Assessment Level of Consciousness: Awake and Alert Hx Seizures: Yes Anesthesia Plan Anesthesia Risk discussed: Yes Anesthesia Plan: Verified ASA Class: II Anesthesia Type: General
--- NOTE | 2022-11-22 22:27 | EXP.ANES.I ---
[facility] Anesthesia Record Part I Anesthesia Record I Intake, IV Amount: 500 Estimated blood loss (mL): 5 Urine output (mL): 0 Blood Pressure: 108/65 SaO2: 93 Pulse Rate: 93 Respiratory Rate: 16 Temperature: 97.6 F Patient is:: Drowsy and Stable Stable to PACU at:: 22:25
--- NOTE | 2022-11-22 22:27 | EXP.OP.NOTE ---
Date of procedure: 11/22/22 Pre-op Diagnosis:: Right forearm abscess Post-op Diagnosis:: Same Procedure performed:: 83494: Debridement irrigation right forearm abscess Surgeon:: Beau Matthews JR, MD [employer]ofing Plant Supervisor(s):: Rocío Duke PA-C FINANCIAL INSTITUTION TREASURER:: Tommy Membreno Anesthesia: GETA Estimated blood loss (mL): 30 Clinical Note:: 36-year-old male with right forearm abscess, history of IV drug abuse. MRI demonstrated persistent abscess after ED lancing. I had a discussion with him regarding further management, recommended debridement irrigation. He was amenable with the plan. We discussed the risk and benefits of surgery. Risks included but were not limited to pain, bleeding, infection, damage to adjacent structures, need for further surgery, wound healing complications, loss of limb, . Patient expressed verbal consent and written consent was obtained for the above procedure. Operative findings:: Gross purulence noted within the wound, devitalized skin was debrided. Operative note:: Patient was identified in preoperative holding. Operative site was marked in indelible ink. History, physical, consent were reviewed and updated. Patient was surrendered to the anesthesia team, taken to the operative suite, placed supine on a well-padded operative table. A nonsterile tourniquet placed on the proximal brachium. Anesthesia was induced. The operative extremity was prepped and draped in the usual sterile fashion. The operative team donned sterile gowns and gloves and a timeout was called. All in attendance agreed regarding the patient's identity, procedure, operative site. Weight-based dose of antibiotics was given prior to incision. I made a longitudinal incision along the length of his fluctuant mass, ellipsing devitalized skin and adjacent to the punctate incision made previously. I noted purulent fluid, swab specimens of which I sent for culture. I bluntly dissected, broke up loculations, copiously irrigated the wound with Irrisept and saline, applied vancomycin powder followed by Nu Gauze and a wet-to-dry dressing with gauze, Kerlix, Lokesh. Postoperatively, will need twice daily wet-to-dry dressing changes with quarter inch Nu Gauze, without iodoform. Follow cultures. Will need home health for wound care. Condition: stable Disposition: PACU Specimens:: Swab specimen sent for culture Complications:: None apparent
--- NOTE | 2022-11-22 23:00 | PC.NURSE ---
Pt back to floor per OR staff
[2022-11-23] VITALS (11 sets, daily range): BP systolic 110–140; BP diastolic 66–87; PULSE 76–96; RESP 12–18; TEMP 36.4–37.1; O2SAT 96–100; BMI 25.9
--- NOTE | 2022-11-23 04:53 | PC.NURSE ---
Pt has c/o pain in right arm 2x since arriving back to floor, PRN pain medication administered. No other c/o voiced to staff. Family at bedside. Call light within reach.
--- NOTE | 2022-11-23 07:11 | EXP.ANES.II ---
[facility] Anesthesia Record Part II Anesthesia Record Part II Discharge Time: 22:55 Destination: Surgical Day Care (OP Surgery) PACU nurse assessment reviewed?: Yes Patient Condition:: Good Anesthesia Complications:: None Swallowing reflex intact?: Yes Cyanosis?: No Blood Pressure: 130/75 Pulse Rate: 89 Temperature: 97.5 F Mental Status: Alert & Oriented Pain level:: 0 Nausea and/or vomitting:: None Intake, IV Amount: 0
--- NOTE | 2022-11-23 09:19 | EXP.DC.SUM ---
General Admission date:: 11/22/22 Discharge date: 11/23/22 HPI HPI HPI: Patient is a 36-year-old fvkil-[id number]-[id number] male admitted to the acute inpatient service after presenting to the [facility] emergency department with concerns for right forearm abscess/infection. Patient states that he has had increasing swelling and pain in his right forearm for approximately 1.5 weeks with associated fevers and chills. His past medical history is significant for seizures and IV drug abuse. He does not recall his last use of illicit substances. He reports that he has had a history of similar infections and sepsis in the past with several abscesses that have spontaneously drained. This morning the patient is lying comfortably in bed. He reports some pain in his right forearm but states that it is improved following bedside incision and drainage performed in the emergency department yesterday. He denies any current feelings of fevers or chills. He denies any other symptoms or concerns at this time. Hospital Course Hospital Course Hospital Course: The patient is admitted to the medical surgical floor with orthopedic consults. In the emergency department he underwent I&D with wound cultures, blood cultures and subsequently MRSA screen was added to his order set. He denied any recent intravenous drug use or past history of endocarditis. He could not recall any injury or trauma. He reports a past history of spontaneous boils. He was started on broad-spectrum IV antibiotic therapy including MRSA coverage. His labs and inflammatory markers were trended. His blood cultures identified no growth to date and intraoperative wound cultures are pending. CT of his right forearm is reviewed and an MRI of his forearm is ordered which demonstrates a small superficial abscess. Orthopedics performs intraoperative washout. His tetanus is updated. His laboratory studies identify improved leukocytoses and his procalcitonin is normal. The patient identifies improvement and inquires about discharge home. He will be discharged home with outpatient wound care and therapy and antibiotic coverage until culture results assist with therapy recommendations. His discharge antibiotics will include Bactrim DS and Levaquin p.o. He understands the importance of following up with his PCP and orthopedic surgeon as scheduled. Exam Data for Last 24 hours Vital signs and Labs for Last 24 Hours: Temp Pulse Resp BP Pulse Ox 98.7 F 96 H 18 122/66 99 11/23/22 08:00 11/23/22 08:00 11/23/22 08:00 11/23/22 08:00 11/23/22 08:00 Laboratory Results - last 24 hr 11/22/22 15:11: Urine Color Yellow, Urine Appearance Clear, Urine pH 6.0, Ur Specific [place] 1.015, Urine Protein Negative, Urine Glucose (UA) Negative, Urine Ketones Negative, Urine Blood Negative, Urine Nitrate Negative, Urine Bilirubin Negative, Urine Urobilinogen 0.2, Ur Leukocyte Esterase Negative, Urine RBC None, Urine WBC 3-5, Ur Squamous Epith Cells Occasional, Urine Bacteria None 11/22/22 15:11: Urine Opiates Screen Negative, Urine Methadone Screen Negative, Ur Barbituates Screen Negative, Ur Phencyclidine Scrn Negative, Ur Amphetamines Screen , U Benzodiazepines Scrn Negative, Urine Cocaine Screen Negative, U Marijuana (THC) Screen Negative I & O for Last 24 hours: Intake & Output 11/20/22 11/21/22 11/22/22 11/23/22 23:59 23:59 23:59 23:59 Intake Total 860 / 860 480 / 480 Output Total 1450 / 1450 Balance -590 / -590 480 / 480 Weight 77.111 kg 74.843 kg 74.843 kg Microbiology Reports for the Last 24 Hours: Microbiology 11/22/22 01:39 Arm,Right Gram Stain - Final 11/22/22 01:39 Arm,Right Wound Culture - Preliminary Gram Positive Cocci 11/21/22 23:07 Arm,Right - Abscess Gram Stain - Final 11/21/22 23:07 Arm,Right - Abscess Abscess Culture - Preliminary Gram Positive Cocci 11/22/22 22:10 Arm,Right - A
--- NOTE | 2022-11-23 09:38 | SW/DCPLANNER ---
I spoke with this patient regarding the need for twice a day dressing changes. Patient stated this his girlfriend would be able to assist him at home with dressing changes. Patient is expected to discharge home today and follow up with outpatient wound clinic. Patient has no further needs/questions at this time.
--- NOTE | 2022-11-23 12:16 | P.CONPHA_ITS ---
Pharmacy Intervention Comments: Met with patient at bedside to summer camp counselor on discharge medications. Overviewed new medications, both antibiotics, as well as indications and possible adverse effects/mitigation strategies for each. Patient asked if he would be sent home on any pain medications; this student confirmed with nursing that he would not be. Recommended Tylenol as an option for pain; however, patient expressed intent to obtain pain medications through illicit means. Otherwise patient had no further questions or concerns at this time. -Maria Victoria Rivas, PharmD Candidate 2022
[2022-11-23 14:17] LABS: HIV Screen 4th Generation wRfx Non Reactive (Non Reactive)
--- NOTE | 2022-11-23 14:46 | PC.NURSE ---
Dressing change instruction provided to patient and significant other Marisela including hand hygiene. BID wet to dry with Nugauze. Patient's significant other states understanding but voiced concerns that patient would not allow her to do it. Patient tolerated dressing change well but stated if he did not get pain meds prescribed he would not do the dressing changes. Discussed importance of dressing changes per order and risk of increasing infection. Patient and significant other voice understanding.
--- NOTE | 2022-11-23 15:00 | EXP.ORTH.PN ---
Subjective *Date: 11/23/22 *Time: 14:30 Interval history: Patient is a 36-year-old male who underwent debridement and irrigation of a right forearm abscess yesterday 11/22/[address] Matthews. Today the patient is postop day 1. This afternoon the patient is lying comfortably in bed and his girlfriend is present at the bedside. He reports pain in his right forearm but states that it is well controlled with pain medication. He denies any current feelings of fevers or chills. He denies any other symptoms or concerns at this time. Ortho Exam (Inpt) Vital signs and Labs for Last 24 Hours: Temp Pulse Resp BP Pulse Ox 98.8 F 96 H 16 116/80 97 11/23/22 12:00 11/23/22 12:00 11/23/22 12:00 11/23/22 12:00 11/23/22 12:00 Laboratory Results - last 24 hr 11/22/22 07:30: HIV 1&2 Ag/Ab, 4th Gen Non reactive 11/22/22 15:11: Urine Color Yellow, Urine Appearance Clear, Urine pH 6.0, Ur Specific [place] 1.015, Urine Protein Negative, Urine Glucose (UA) Negative, Urine Ketones Negative, Urine Blood Negative, Urine Nitrate Negative, Urine Bilirubin Negative, Urine Urobilinogen 0.2, Ur Leukocyte Esterase Negative, Urine RBC None, Urine WBC 3-5, Ur Squamous Epith Cells Occasional, Urine Bacteria None 11/22/22 15:11: Urine Opiates Screen Negative, Urine Methadone Screen Negative, Ur Barbituates Screen Negative, Ur Phencyclidine Scrn Negative, Ur Amphetamines Screen , U Benzodiazepines Scrn Negative, Urine Cocaine Screen Negative, U Marijuana (THC) Screen Negative Temp Pulse Resp BP Pulse Ox 98.2 F 64 16 131/75 98 11/22/22 08:00 11/22/22 08:00 11/22/22 08:00 11/22/22 08:00 11/22/22 08:00 Laboratory Results - last 24 hr 11/21/22 23:20: WBC 15.5 H, RBC 5.22, Hgb 15.7, Hct 45.8, MCV 87.7, MCH 30.1, MCHC 34.3, RDW 12.7, Plt Count 368, MPV 8.1, Neut % (Auto) 82.4 H, Lymph % (Auto) 11.6, [place] % (Auto) 4.3, Eos % (Auto) 1.1, Baso % (Auto) 0.5, Neut # (Auto) 12.8 H, Lymph # (Auto) 1.8, [place] # (Auto) 0.7, Eos # (Auto) 0.2, Baso # (Auto) 0.1, Total Counted 100, Neutrophils % (Manual) 84 H, Lymphocytes % (Manual) 13, Monocytes % (Manual) 3, Platelet Estimate Normal, Tear Drop Cells 1+, Stomatocytes 1+ 11/21/22 23:20: Lactate 2.0 11/21/22 23:20: ESR 23 H 11/22/22 00:56: Sodium 138, Potassium 4.1, Chloride 103, Carbon Dioxide 31 H, Anion Gap 8.1, BUN 10, Creatinine 0.90, Estimated Creat Clear 123, Estimated GFR 95, Est GFR ( Amer) 115, Glucose 112 H, Calcium 8.6, Total Bilirubin 0.3, AST 56, ALT 96 H, Alkaline Phosphatase 130 H, C-Reactive Protein 40.5 H, Total Protein 7.4, Albumin 3.8, Globulin 3.6 H, Albumin/Globulin Ratio 1.1, Procalcitonin 0.092 11/22/22 01:54: SARS-CoV-2 (PCR) Not detected, Influenza A Untype (PCR) Not detected, Influenza Type B (PCR) Not detected 11/22/22 07:30: WBC 12.6 H, RBC 4.36 L, Hgb 12.7 L D, Hct 37.8 L, MCV 86.7, MCH 28.9, MCHC 33.3, RDW 12.7, Plt Count 316, MPV 7.9, Neut % (Auto) 74.7, Lymph % (Auto) 16.3, [place] % (Auto) 5.9, Eos % (Auto) 2.7, Baso % (Auto) 0.4, Neut # (Auto) 9.4 H, Lymph # (Auto) 2.1, [place] # (Auto) 0.8, Eos # (Auto) 0.3, Baso # (Auto) 0.1 11/22/22 07:30: Sodium 141, Potassium 3.8, Chloride 110 H, Carbon Dioxide 27, Anion Gap 7.8, BUN 7 L D, Creatinine 0.80, Estimated Creat Clear 134, Estimated GFR 109, Est GFR ( Amer) 132, Glucose 108 H, Calcium 8.0 L, Total Bilirubin 0.2, AST 39 D, ALT 70 D, Alkaline Phosphatase 103, Total Protein 6.2 L, Albumin 3.2 L D, Globulin 3.0, Albumin/Globulin Ratio 1.1 I & O for Labs for Last 24 Hours: Intake & Output 11/20/22 11/21/22 11/22/22 11/23/22 23:59 23:59 23:59 23:59 Intake Total 860 / 860 480 / 480 Output Total 1450 / 1450 Balance -590 / -590 480 / 480 Weight 170 lb 165 lb 165 lb Intake & Output 11/19/22 11/20/22 11/21/22 11/22/22 23:59 23:59 23:59 23:59 Weight 170 lb 165 lb Microbiology Reports for the Last 24 Hours: Microbiology 11/22/22 01:39 Arm,Right Gram Stain - Final 11/22/22 01:39 Arm,Right [place]
--- NOTE | 2022-11-23 15:26 | PC.NURSE ---
Patient became very agitated when informed that analgesic prescription was for Motrin 800mg. Stated he was not going to take any of his prescriptions. Discussed importance of wound care and antibiotics. Discussed when to seek medical care. Significant other stated that she would nut picker prescriptions and try to get him to let her do dressing changes. Patient stated he did not have a ride and would not wait for one. Patient left via ambulation in stable condition with SO. Patient was vaping as he exited the unit
[2022-11-26 22:21] LABS: Hep A Ab, IgM NEGATIVE; Hepatitis B Core Antibody IgM NEGATIVE; Hepatitis B Surface Antigen NEGATIVE; Hepatitis C Antibody >11.0
[2022-11-28 11:19] LABS: Amphetamine Positive (.); Amphetamine (GC/MS) >3000 ng/mL (Cutoff=500); Amphetamines Positive (.); Methamphetamine Positive (.); Methamphetamine (GC/MS) >3000 ng/mL (Cutoff=500)
== END 2022-11-23 15:25 | disposition home or self-care (01) ==
LOC: ER 23:03 → 2ND 11-22 04:27
PROVIDERS: Nurse Practitioner Family; Orthopaedic Surgery; Admitting Provider Internal Medicine Adolescent Medicine; Emergency Provider Student in an Organized Health Care Education/Training Program; Visit Provider Family Medicine
PROC: (CPT 10061; principal; 2022-11-22 21:00)
DX: L03.113 Cellulitis of right upper limb (principal); L02.413 Cutaneous abscess of right upper limb; F17.210 Nicotine dependence, cigarettes, uncomplicated; F19.10 Other psychoactive substance abuse, uncomplicated
CPT/HCPCS: 10061; 73201; 73220; 80053; 80074; 80305; 80324; 81001; 83605; 84145; 85007; 85025; 85651; 86140; 86703; 87040; 87070; 87077; 87081; 87186; 87205; 90715; 93005; 99285; A9576; C9803; G0378; G0432; J0131; J2405; J3370; Q9967; U0003; U0005